=== PATIENT | female | born 1965 | race Caucasian/White ===

== ENCOUNTER 2018-03-26 14:49 | Emergency (ER) | payer BC ==
[2018-03-26 18:22] LABS: ADD MAN DIFF? NO
[2018-03-26 18:24] LABS: BASOPHIL # 0.1 10^3/ul (0.0-0.1); BASOPHILS % 0.8 % (0.0-2.0); EOSINOPHILS # 0.3 10^3/ul (0.0-0.5); EOSINOPHILS % 4.5 % (0.0-7.0); HEMATOCRIT 39.8 % (37.0-47.0); HEMOGLOBIN 13.2 g/dl (12.0-16.0); LYMPHOCYTES # 3.4 10^3/ul (0.8-2.9); MEAN CORPUSCULAR HEMOGLOBIN 30.9 pg (29.0-33.0); MEAN CORPUSCULAR HGB CONC 33.2 g/dl (32.0-37.0); MEAN CORPUSCULAR VOLUME 93.2 fl (82.0-101.0); MEAN PLATELET VOLUME 9.6 fl (7.4-10.4); MONOCYTE # 0.6 10^3/ul (0.3-0.9); MONOCYTES % 7.4 % (0.0-11.0); NEUTROPHIL # 3.2 10^3/ul (1.6-7.5); NEUTROPHILS % 42.2 % (39.0-77.0); PLATELET COUNT 237 10^3/UL (140-415); RED BLOOD COUNT 4.27 10^6/ul (4.20-5.40); RED CELL DISTRIBUTION WIDTH 12.5 % (11.5-14.5)
[2018-03-26 18:24] LABS: WHITE BLOOD COUNT 7.6 10^3/ul (4.8-10.8)
[2018-03-26 18:49] LABS: ALANINE AMINOTRANSFERASE 87 IU/L (13-69); ALBUMIN 4.5 g/dl (3.3-4.9); ALBUMIN/GLOBULIN RATIO 1.45; ALKALINE PHOSPHATASE 102 IU/L (42-121); ANION GAP 18 (8-16); ASPARTATE AMINO TRANSFERASE 52 IU/L (15-46); BILIRUBIN,INDIRECT 0.2 mg/dl (0-1.1); BILIRUBIN,TOTAL 0.2 mg/dl (0.2-1.3); BLOOD UREA NITROGEN 15 mg/dl (7-20); CALCIUM 9.7 mg/dl (8.4-10.2); CARBON DIOXIDE 27 mmol/L (21-31); CHLORIDE 102 mmol/L (97-110); CREATININE 0.53 mg/dl (0.44-1.00); GLUCOSE 219 mg/dl (70-220); POTASSIUM 4.2 mmol/L (3.5-5.1); SODIUM 143 mmol/L (135-144); TOTAL PROTEIN 7.6 g/dl (6.1-8.1)
[2018-03-26] MEDS: LORAZEPAM 2 MG INJ IV (18:51)
[2018-03-26] MEDS: ASPIRIN 325 MG TAB PO (18:51)
[2018-03-26 19:01] LABS: TROPONIN-I < 0.012 ng/ml (0.00-0.12)
[2018-03-26] MEDS: NITROGLYCERIN (SL) 0.4 MG TAB SL (20:14)
[2018-03-26] MEDS ORDERED: morphine 2 MG INJ IV (20:30)
[2018-03-26] MEDS ORDERED: DOCUSATE SODIUM 100 MG CAP PO (20:30)
[2018-03-26] MEDS ORDERED: NITROGLYCERIN (SL) 0.4 MG TAB SL (20:30)
[2018-03-26] MEDS ORDERED: ONDANSETRON 4 MG INJ IV ×2 (20:30)
[2018-03-26] MEDS ORDERED: ACETAMINOPHEN 325 MG TAB PO ×2 (20:30)
[2018-03-26] MEDS ORDERED: NACL 0.9% 3 ML SYG IV (20:30)
[2018-03-26 20:32] LABS: CHOLESTEROL 119 mg/dl (100-200)
[2018-03-26 20:32] LABS: CHOL/HDL RATIO 2.5 RATIO; HDL CHOLESTEROL 47 mg/dl (37-92); LDL CHOLESTEROL,CALCULATED 34 mg/dl; TRIGLYCERIDES 192 mg/dl (0-149)
[2018-03-26] MEDS ORDERED: traMADol 50 MG TAB PO (21:00)
[2018-03-26] MEDS ORDERED: MECLIZINE 25 MG TAB PO (21:00)
[2018-03-26] MEDS ORDERED: GLUCAGON 1 MG INJ IM (21:30)
[2018-03-26] MEDS ORDERED: DEXTROSE 50% 50 ML SYRINGE IV ×2 (21:30)
[2018-03-26] MEDS ORDERED: GLUCOSE GEL 15 GRAM TUBE BUCCAL (21:30)
[2018-03-26] MEDS ORDERED: GLUCOSE GEL 15 GRAM TUBE PO ×2 (21:30)
[2018-03-26] MEDS: FAMOTIDINE 20 MG TAB PO (21:34)
[2018-03-26] MEDS: ATORVASTATIN 40 MG TAB PO (21:34)
[2018-03-26] MEDS: QUETIAPINE 25 MG TAB PO (21:34)
[2018-03-26] MEDS: INSULIN GLARGINE [LANtus] 3 ML PEN SC (21:38)
[2018-03-26] MEDS: INSULIN ASPART [NOVOLOG] 3 ML PEN SC (21:38)
[2018-03-26 22:46] LABS: HEMOGLOBIN A1C 7.8 % (0-5.9)
[2018-03-26 23:22] LABS: CREATINE KINASE 57 IU/L (23-200)
[2018-03-26 23:35] LABS: CK INDEX 1.2; CK-MB 0.69 ng/ml (0.0-2.4)
[2018-03-26 23:44] LABS: TROPONIN-I < 0.012 ng/ml (0.00-0.12)
[2018-03-27 02:06] LABS: CREATINE KINASE 52 IU/L (23-200)
[2018-03-27 02:16] LABS: CK INDEX 1.2
[2018-03-27 02:19] LABS: TROPONIN-I < 0.012 ng/ml (0.00-0.12)
[2018-03-27] MEDS: LEVOTHYROXINE 25 MCG TAB PO (06:29)
[2018-03-27] MEDS: INSULIN ASPART [NOVOLOG] 3 ML PEN SC ×7 (08:22→22:37)
[2018-03-27] MEDS: ASPIRIN (EC) 81 MG TAB PO (08:25)
[2018-03-27] MEDS: ISOSORBIDE MONONITRATE(SR)30 MG TAB PO (08:26)
[2018-03-27] MEDS: PYRIDOXINE 50 MG TAB PO (08:27)
[2018-03-27] MEDS: OXYBUTYNIN 5 MG TAB PO (08:29)
[2018-03-27] MEDS: LOSARTAN 50 MG TAB PO (08:30)
[2018-03-27 08:42] LABS: ADD MAN DIFF? NO
[2018-03-27 08:45] LABS: BASOPHIL # 0.1 10^3/ul (0.0-0.1); EOSINOPHILS # 0.3 10^3/ul (0.0-0.5); EOSINOPHILS % 4.7 % (0.0-7.0); HEMATOCRIT 38.6 % (37.0-47.0); HEMOGLOBIN 12.7 g/dl (12.0-16.0); LYMPHOCYTES # 2.9 10^3/ul (0.8-2.9); LYMPHOCYTES % 42.8 % (15.0-51.0); MEAN CORPUSCULAR HEMOGLOBIN 30.8 pg (29.0-33.0); MEAN CORPUSCULAR HGB CONC 32.9 g/dl (32.0-37.0); MEAN CORPUSCULAR VOLUME 93.5 fl (82.0-101.0); MONOCYTE # 0.5 10^3/ul (0.3-0.9); MONOCYTES % 7.9 % (0.0-11.0); NEUTROPHILS % 43.3 % (39.0-77.0); PLATELET COUNT 227 10^3/UL (140-415); RED BLOOD COUNT 4.13 10^6/ul (4.20-5.40); RED CELL DISTRIBUTION WIDTH 12.5 % (11.5-14.5)
[2018-03-27 08:45] LABS: WHITE BLOOD COUNT 6.8 10^3/ul (4.8-10.8)
[2018-03-27] MEDS ORDERED: BUPROPION (XL) 150 MG TAB PO (09:00)
[2018-03-27] MEDS ORDERED: GABAPENTIN 300 MG CAP PO (09:00)
[2018-03-27] MEDS ORDERED: FLUOXETINE 20 MG CAP PO (09:00)
[2018-03-27 09:09] LABS: ANION GAP 15 (8-16); BLOOD UREA NITROGEN 18 mg/dl (7-20); CALCIUM 9.2 mg/dl (8.4-10.2); CARBON DIOXIDE 26 mmol/L (21-31); CHLORIDE 106 mmol/L (97-110); CREATININE 0.59 mg/dl (0.44-1.00); GLUCOSE 245 mg/dl (70-220); MAGNESIUM 1.8 mg/dl (1.7-2.5); POTASSIUM 3.9 mmol/L (3.5-5.1); SODIUM 143 mmol/L (135-144)
[2018-03-27] MEDS: ATORVASTATIN 40 MG TAB PO (22:23)
[2018-03-27] MEDS: QUETIAPINE 25 MG TAB PO (22:24)
[2018-03-27] MEDS: FLUOXETINE 20 MG CAP PO (22:24)
[2018-03-27] MEDS: BUPROPION (XL) 150 MG TAB PO (22:24)
[2018-03-27] MEDS: FAMOTIDINE 20 MG TAB PO (22:25)
[2018-03-27] MEDS: GABAPENTIN 300 MG CAP PO (22:26)
[2018-03-27] MEDS: INSULIN GLARGINE [LANtus] 3 ML PEN SC (22:36)
[2018-03-28] MEDS: LEVOTHYROXINE 25 MCG TAB PO (06:55)
[2018-03-28] MEDS: INSULIN ASPART [NOVOLOG] 3 ML PEN SC ×2 (07:55)
[2018-03-28] MEDS: ISOSORBIDE MONONITRATE(SR)30 MG TAB PO (08:04)
[2018-03-28] MEDS: LOSARTAN 50 MG TAB PO (08:05)
[2018-03-28] MEDS: PYRIDOXINE 50 MG TAB PO (08:05)
[2018-03-28] MEDS: ASPIRIN (EC) 81 MG TAB PO (08:05)
[2018-03-28] MEDS: OXYBUTYNIN 5 MG TAB PO (08:08)
[2018-03-28 09:11] LABS: ADD MAN DIFF? NO
[2018-03-28 09:15] LABS: BASOPHIL # 0.1 10^3/ul (0.0-0.1); BASOPHILS % 0.7 % (0.0-2.0); EOSINOPHILS # 0.4 10^3/ul (0.0-0.5); EOSINOPHILS % 4.6 % (0.0-7.0); HEMATOCRIT 37.4 % (37.0-47.0); HEMOGLOBIN 12.3 g/dl (12.0-16.0); LYMPHOCYTES # 3.5 10^3/ul (0.8-2.9); LYMPHOCYTES % 46.6 % (15.0-51.0); MEAN CORPUSCULAR HEMOGLOBIN 30.7 pg (29.0-33.0); MEAN CORPUSCULAR HGB CONC 32.9 g/dl (32.0-37.0); MEAN CORPUSCULAR VOLUME 93.3 fl (82.0-101.0); MONOCYTE # 0.6 10^3/ul (0.3-0.9); MONOCYTES % 7.9 % (0.0-11.0); NEUTROPHILS % 39.9 % (39.0-77.0); PLATELET COUNT 205 10^3/UL (140-415); RED BLOOD COUNT 4.01 10^6/ul (4.20-5.40); RED CELL DISTRIBUTION WIDTH 12.6 % (11.5-14.5)
[2018-03-28 09:15] LABS: WHITE BLOOD COUNT 7.6 10^3/ul (4.8-10.8)
[2018-03-28 09:32] LABS: ALANINE AMINOTRANSFERASE 71 IU/L (13-69); ALBUMIN 3.5 g/dl (3.3-4.9); ALBUMIN/GLOBULIN RATIO 1.34; ALKALINE PHOSPHATASE 70 IU/L (42-121); ANION GAP 12 (8-16); ASPARTATE AMINO TRANSFERASE 37 IU/L (15-46); BILIRUBIN,INDIRECT 0.2 mg/dl (0-1.1); BILIRUBIN,TOTAL 0.2 mg/dl (0.2-1.3); BLOOD UREA NITROGEN 17 mg/dl (7-20); CALCIUM 9.1 mg/dl (8.4-10.2); CARBON DIOXIDE 31 mmol/L (21-31); CHLORIDE 106 mmol/L (97-110); CREATININE 0.57 mg/dl (0.44-1.00); GLUCOSE 200 mg/dl (70-220); MAGNESIUM 1.8 mg/dl (1.7-2.5); PHOSPHORUS 3.8 mg/dl (2.5-4.9); POTASSIUM 3.9 mmol/L (3.5-5.1); SODIUM 145 mmol/L (135-144); TOTAL PROTEIN 6.1 g/dl (6.1-8.1)
[2018-03-28 09:35] LABS: LIPASE 164 U/L (23-300)
[2018-03-28 09:44] LABS: TROPONIN-I < 0.012 ng/ml (0.00-0.12)
[2018-03-28] MEDS ORDERED: FAMOTIDINE 20 MG TAB PO (11:00)
== END 2018-03-28 11:35 | disposition home or self-care (01) ==
LOC: E/R 14:49 → TEL 20:18
DX: R07.9 Chest pain, unspecified (principal); R93.1 Abnormal findings on diagnostic imaging of heart and coronary circulation; I10 Essential (primary) hypertension; E78.5 Hyperlipidemia, unspecified; Z79.82 Long term (current) use of aspirin
CPT/HCPCS: 36415; 71045; 80048; 80053; 80061; 82550; 82553; 82962; 83036; 83690; 83735; 84100; 84443; 84484; 84703; 85025; 93005; 93306; 96372; 96374; 99285-25; G0378

== ENCOUNTER 2018-04-18 13:10 | Emergency (ER) | payer BC ==
[2018-04-18] MEDS: KETOROLAC 60 MG INJ IM (15:20)
== END 2018-04-18 17:03 | disposition home or self-care (01) ==
LOC: FTE 13:10
DX: M54.5 Low back pain (principal); E11.9 Type 2 diabetes mellitus without complications; Z79.4 Long term (current) use of insulin; Z79.82 Long term (current) use of aspirin; Z79.84 Long term (current) use of oral hypoglycemic drugs; Z87.891 Personal history of nicotine dependence
CPT/HCPCS: 72100; 96372; 99284-25

== ENCOUNTER → 2018-12-02 | Outpatient (CLI) | payer BC ==
[2018-12-02 10:58] LABS: ANION GAP 10 (5-13); BLOOD UREA NITROGEN 16 mg/dl (7-20); CALCIUM 9.4 mg/dl (8.4-10.2); CARBON DIOXIDE 26 mmol/L (21-31); CHLORIDE 101 mmol/L (97-110); CREATININE 0.48 mg/dl (0.44-1.00); Estimated GFR > 60 mL/min (>60); GLUCOSE 325 mg/dl (70-220); POTASSIUM 4.1 mmol/L (3.5-5.1); SODIUM 137 mmol/L (135-144)
== END | disposition home or self-care (01) ==
LOC: LAB 10:09
DX: R89.9 Unspecified abnormal finding in specimens from other organs, systems and tissues (principal); R07.9 Chest pain, unspecified; R06.02 Shortness of breath
CPT/HCPCS: 80048

== ENCOUNTER → 2018-12-12 | Outpatient (CLI) | payer BC ==
[~2018-12-12] MED LIST: IOHEXOL 350MG/ML 50 ML BTL
[2018-12-12] MEDS: SOD CHLORIDE 0.9% 100 ML (09:53)
[2018-12-12] MEDS: IOHEXOL 100 ML (09:54)
[2018-12-12] MEDS: NITROGLYCERIN AEROSOL (4.9 GM) (10:06)
[2018-12-12] MEDS: METOPROLOL 5 MG INJ (10:06)
== END | disposition home or self-care (01) ==
LOC: C/S 08:33
DX: R94.39 Abnormal result of other cardiovascular function study (principal); R07.9 Chest pain, unspecified; R06.02 Shortness of breath
CPT/HCPCS: 75571; 75574

== ENCOUNTER 2019-07-14 20:09 | Emergency (ER) | payer BC ==
[2019-07-14] MEDS: LORAZEPAM 1 MG TAB PO (20:58)
[2019-07-14] MEDS: ACETAMINOPHEN 325 MG TAB PO (21:02)
== END 2019-07-14 21:35 | disposition home or self-care (01) ==
LOC: FTE 20:09
DX: F41.9 Anxiety disorder, unspecified (principal); E11.9 Type 2 diabetes mellitus without complications; I10 Essential (primary) hypertension; M54.2 Cervicalgia; F17.210 Nicotine dependence, cigarettes, uncomplicated; Z79.4 Long term (current) use of insulin; Z79.82 Long term (current) use of aspirin
CPT/HCPCS: 99283; Z7502